=== PATIENT | male | born 1955 | race Caucasian/White ===

== ENCOUNTER 2017-10-07 13:25 | Inpatient (IN) | payer SELFPAY ==
[2017-10-07] MEDS ORDERED: Diltiazem 125 MG in Sodium Chloride 0.9% 100 ML IVPB SCH (14:30)
[2017-10-07 14:49] LABS: CKMB 1.8 ng/mL (0-6.6); Troponin I 0.162 ng/mL (< 0.028)
[2017-10-07] MEDS ORDERED: Ondansetron HCl/PF 4 MG/2 ML Vial IVP PRN (17:18)
[2017-10-07] MEDS ORDERED: Ondansetron ODT 4 MG TAB SL PRN (17:18)
[2017-10-07] MEDS ORDERED: Sodium Chloride 0.9% 1,000 ML IV SCH (17:18)
[2017-10-07] MEDS ORDERED: Acetaminophen 325 MG TAB PO PRN (17:37)
[2017-10-07] MEDS ORDERED: Nitroglycerin 0.4 MG TAB (25 Tab Bottle) PO PRN (17:37)
[2017-10-07] MEDS ORDERED: Mag-Al 1200 mg/1200 mg/30 ML UDCUP PO PRN (17:37)
[2017-10-07] MEDS ORDERED: Ondansetron ODT 4 MG TAB PO PRN (17:37)
[2017-10-07] MEDS ORDERED: Digoxin 0.5 MG/2 ML AMP ONE (18:06)
[2017-10-07 18:27] LABS: Troponin I 0.147 ng/mL (< 0.028)
[2017-10-07] MEDS ORDERED: Digoxin 0.5 MG/2 ML AMP SLOW IVP SCH (18:30)
[2017-10-07] MEDS ORDERED: Enoxaparin Sodium 100 MG/ML SYRINGE SC SCH (18:30)
[2017-10-07 18:46] VITALS: BMI 34.2
[2017-10-07] MEDS: Carvedilol 6.25 MG TAB PO SCH (19:08)
[2017-10-07] MEDS: Docusate 100 MG CAP PO SCH (20:22)
[2017-10-07] MEDS: Famotidine 20 MG TAB PO SCH (20:22)
[2017-10-07] MEDS: Acetaminophen 325 MG TAB PO PRN (20:22)
[2017-10-07] MEDS: Nitroglycerin 2% Ointment 1 INCH/1 GM Packet TOP SCH (20:22)
[2017-10-07] MEDS: Zolpidem Tartrate 5 MG TAB PO PRN (20:28)
--- NOTE | 2017-10-07 20:51 | HP ---
PRIMARY CARE PHYSICIAN: The patient does not have a primary care physician. CHIEF COMPLAINT: Shortness of breath and fatigue. HISTORY OF PRESENT ILLNESS: Mr. Soriano is a pleasant 62-year-old gentleman that has a history of hype rtension. He has not been on any medications recently as he moved from [place] about a year ago. The patient says that in the last week or so, which started on , he began feeling sluggish an d weak and "dragging". He says that when he bent over, he fell out of breath. Then, Friday, he just wanted to sleep all day; Friday, he says he was in bed all day and was short of breath; by Friday, he was feeling really short of breath; Friday, he says he just took a few steps and could barely diandra athe and had no energy. He denies having any chest pain, but when he would go try to sleep at night, he could barely lay down because he was short of breath and then would have to wake up and sit at th e side of the bed. For this reason, he went to the emergency room at the [facility] and was found to be in atrial fibrillation with rapid ventricular response. He was going to be transferred to our fa cility, but he had to go home and cone picker some clothes and then actually presented himself to the ER here. Since then, he has been put on a Cardizem drip with variable control of his heart rate, and he is being admitted for further treatment. PAST MEDICAL HISTORY: Significant for hypertension and asthma. PAST SURGICAL HISTORY: He had the index finger on his right hand amputated due to a carpentry accide nt. He also had surgery to repair his right arm. SOCIAL HISTORY: He is . He has no children. He is a nonsmoker, nondrinker. His mother is his surrogate decision maker and he is a FULL CODE. MEDICATIONS: He had been on amlodipine, but he has not been on that for some time. He says it did n ot work and so he borrowed a few of his friend's carvedilol 12.5 mg and he says this worked better. FAMILY HISTORY: Significant for heart disease in his mother as well as diabetes and hypothyroidism, breast cancer in his mother as well as gallbladder disease. REVIEW OF SYSTEMS: Constitutional: There have been no fevers or chills. No night sweats. No weigh t loss. HEENT: No headaches. No dizziness. No visual changes. No sore throat, rhinorrhea, or nec k pain. No adenopathy. Pulmonary: No hemoptysis. No cough. No wheezing. Cardiovascular: As the history of present illness. Gastrointestinal: No abdominal pain, no nausea, no vomiting, no change in bowels. Genitourinary: No urinary frequency or hematuria, no hesitancy. Neurologic: No focal weakness or numbness, no seizures. Psychiatric: No symptoms of anxiety or depression. PHYSICAL EXAMINATION: VITAL SIGNS: The blood pressure was 134/95, heart rate is 130s to 140s, blood pressure was 147/119, temperature is 98.3. HEENT: Pupils are equal, round, and reactive. Extraocular muscles are intact. Sclerae are anicteri c. Throat: No erythema, no exudates. NECK: No adenopathy, no bruits. LUNGS: Clear to auscultation. There is no wheezing, no rales. CARDIOVASCULAR: His heart rate was tachycardic. There were no murmurs, clicks or rubs. ABDOMEN: Obese, soft, nontender, nondistended. Positive for bowel sounds. No rebound, no guarding and no organomegaly. EXTREMITIES: There is no clubbing, cyanosis, no edema. NEUROLOGIC: The exam is grossly nonfocal. Muscle strength is 5/5 in both his upper and lower extrem ities. LABORATORY: EKG was atrial fibrillation, the heart rate was approximately 140s. Lab results were ta yaa from the records from the [facility] emergency room, the sodium was 145, potassium 4.5, chloride is 104, CO2 is 25, BUN of 13, creatinine 1.1, glucose is 149. White blood cell count 8.7, hemoglobin 14 .8, hematocrit is 42.8, platelet count is 148,000. ASSESSMENT AND PLAN: 1. This is a pleasant 62-year-old gentleman that presents with atrial fibrillation with rapid ventri cular response. He has no prior history of atrial fibrillation. He will be admitted to telemetry. He has already been started on a Cardizem drip which will be continued. As previously mentioned, the heart rate has been variable, even on the Cardizem drip and he may require digoxin or even amiodaron e. Cardiology will be consulted. We will order an echocardiogram and we will start him on Lovenox. We did briefly discuss the possibility of needing to be on long-term anticoagulation and he understo od this. We will also check a thyroid function test as well. 2. For hypertension, this has been not controlled as he has not been on any medications. He seems t o prefer carvedilol, which would help with blood pressure as well as controlling his heart rate. We can start this initially and then await Cardiology recommendations as well. We will continue to tren d cardiac enzymes as well as continue the nitrates and low dose aspirin. We will get a lipid panel. 3. History of asthma. We will place him on Xopenex nebs as needed. Further recommendations will be based on his progress.
[2017-10-07 20:59] LABS: Troponin I 0.156 ng/mL (< 0.028)
[2017-10-08] MEDS: Acetaminophen 325 MG TAB PO PRN ×4 (03:12→20:35)
[2017-10-08] MEDS: Diltiazem 125 MG in Sodium Chloride 0.9% 100 ML IVPB SCH ×2 (03:39→17:03)
[2017-10-08 04:59] LABS: #Basophils 0.1 thou/uL (0.0-0.2); #Eosinphils 0.3 thou/uL (0.0-0.7); #Lymphocytes 2.1 thou/uL (1.20-3.40); #Monocytes 0.9 thou/uL (0.11-0.59); #Neutrophils 6.6 thou/uL (1.40-6.50); %Basophils 0.7 % (0.0-1.0); %Eosinophils 2.6 % (0.0-10.0); %Lymphocytes 21.5 % (21.0-51.0); %Monocytes 8.9 % (0.0-10.0); %Neutrophils 66.4 % (42.0-75.0); Hemoglobin 14.1 g/dL (14.0-18.0); Mean Corpuscular HGB CONC 35.2 g/dL (32.0-36.0); Mean Corpuscular Hemoglobin 32.2 pg (27.0-31.0); Mean Corpuscular Volume 91.6 fl (80.0-94.0); Mean Platelet Volume 7.7 fL (7.4-10.4); Platelet Count 198 thou/uL (130-400); RBC Distribution Width 12.3 % (11.5-14.5); Red Blood Cell (RBC) Count 4.37 mill/uL (4.70-6.10); White Blood Cell (WBC) Count 9.9 thou/uL (4.8-10.8)
[2017-10-08 05:16] LABS: Anion Gap 11 mmol/L (10-20); BUN (Urea Nitrogen) 15 mg/dL (8.4-25.7); Calc. Creatinine Clearance 108 mL/min (70-130); Calcium 8.7 mg/dL (7.8-10.44); Carbon Dioxide 25 mmol/L (22-29); Cardiac Risk 4.2 (Less than 4.5); Chloride 107 mmol/L (98-107); Cholesterol 117 mg/dl (< 200 Desired); Estimated GFR-MDRD 72; Glucose 114 mg/dL (70-105); HDL Cholesterol 28 mg/dL (>60 Neg Risk); LDL Cholesterol, Calculated 71 mg/dL; Potassium 3.9 mmol/L (3.5-5.1); Sodium 139 mmol/L (136-145); Triglycerides 89 mg/dL (Less than 150)
[2017-10-08 05:31] LABS: Free T4 (Free Thyroxine) 1.24 ng/dL (0.70-1.48); Thyroid Stimulating Hormone 1.29 uIU/mL (0.35-4.94)
[2017-10-08] MEDS: Nitroglycerin 2% Ointment 1 INCH/1 GM Packet TOP SCH ×3 (05:55→20:44)
[2017-10-08] MEDS ORDERED: Chloraseptic Spray 180 ml Bottle PO PRN (08:09)
[2017-10-08] MEDS ORDERED: Loperamide HCl 2 MG CAP PO PRN (08:09)
[2017-10-08] MEDS ORDERED: Artificial Tears 18 DROP/0.9 ML EA EYE PRN (08:09)
[2017-10-08] MEDS ORDERED: Diabetic Tussin 200 MG/10 ML UDCUP PO PRN (08:09)
[2017-10-08] MEDS ORDERED: Labetalol HCl 100 MG/20 ML VIAL SLOW IVP PRN (08:09)
[2017-10-08] MEDS ORDERED: Eucerin (Mineral Oil/Petrolatum,White) 30 gm Jar TOP PRN (08:09)
[2017-10-08] MEDS ORDERED: Loratadine 10 MG TAB PO PRN (08:09)
[2017-10-08] MEDS ORDERED: Milk Of Magnesia 30 ML UDCUP PO PRN (08:09)
[2017-10-08] MEDS ORDERED: Sodium Chloride 0.65% Nasal 44 ML BOT EA NARE PRN (08:09)
[2017-10-08] MEDS: Docusate 100 MG CAP PO SCH ×2 (08:10→20:34)
[2017-10-08] MEDS: Famotidine 20 MG TAB PO SCH ×2 (08:10→20:34)
[2017-10-08] MEDS: Carvedilol 6.25 MG TAB PO SCH (08:10)
[2017-10-08] MEDS: Enoxaparin Sodium 100 MG/ML SYRINGE SC SCH ×2 (08:11→20:36)
[2017-10-08 08:38] LABS: ALT (SGPT) 21 U/L (8-55); AST (SGOT) 17 U/L (5-34); Albumin 3.5 g/dL (3.5-5.0); Alkaline Phosphatase 62 U/L (40-150); Bilirubin, Direct 0.7 mg/dL (0.1-0.3); Bilirubin, Total 1.7 mg/dL (0.2-1.2)
--- NOTE | 2017-10-08 12:01 | PDOC.PN ---
- Subjective Encounter Start Date: 10/08/17 Encounter Start Time: 07:15 -: old records requested/rev Patient seen and examined for atrial fibrillation. No new complaints. No overnight events - Objective Resuscitation Status: Resuscitation Status FULL:Full Resuscitation MAR Reviewed: Yes Vital Signs & Weight: Vital Signs (12 hours) Temp Pulse Resp BP Pulse Ox 10/08/17 08:00 98.2 F 90 17 94 L 10/08/17 07:37 98.2 F 90 17 119/81 94 L Weight Weight 225 lb 3.2 oz I&O: 10/07/17 10/08/17 10/09/17 06:59 06:59 06:59 Intake Total 275 Output Total 725 Balance -450 Result Diagrams: 10/08/17 04:47 10/08/17 04:47 EKG Reviewed by me: Yes (afib) Phys Exam - Physical Examination Constitutional: NAD HEENT: PERRLA, moist MMs, sclera anicteric Neck: no JVD, supple Respiratory: no wheezing, no rales, no rhonchi Cardiovascular: no significant murmur, irregular Gastrointestinal: soft, non-tender, no distention, positive bowel sounds Musculoskeletal: no edema, pulses present Neurological: non-focal, normal sensation, moves all 4 limbs Psychiatric: normal affect, A&O x 3 Skin: no rash, normal turgor Dx/Plan (1) Atrial fibrillation with RVR Code(s): I48.91 - UNSPECIFIED ATRIAL FIBRILLATION Status: Acute (2) Demand ischemia of myocardium Code(s): I24.8 - OTHER FORMS OF ACUTE ISCHEMIC HEART DISEASE Status: Acute (3) Asthma Code(s): J45.909 - UNSPECIFIED ASTHMA, UNCOMPLICATED Status: Chronic (4) Hypertension Code(s): I10 - ESSENTIAL (PRIMARY) HYPERTENSION Status: Chronic (5) Obesity (BMI 30-39.9) Code(s): E66.9 - OBESITY, UNSPECIFIED Status: Chronic - Plan cont current plan of care, plan discussed w/ family * continue cardizem drip, still in afib but rate controlled * continue lovenox * cardiology consulted * he has chads2 score 1 so far, echo pending, * discussed with pt about option of senior care chronic anticoagulation, will defer to cardiology * if in afib, may need cardioversion * medication reviewed as below * symptomatic treatment * discussed with . Review of Systems - Review of Systems Eyes: negative: Pain, Vision Change, Conjunctivae Inflammation, Eyelid Inflammation, Redness, Other ENT: negative: Ear Pain, Ear Discharge, Nose Pain, Nose Discharge, Nose Congestion, Mouth Pain, Mouth Swelling, Throat Pain, Throat Swelling, Other Respiratory: negative: Cough, Dry, Shortness of Breath, Hemoptysis, SOB with Excertion, Pleuritic Pain, Sputum, Wheezing Cardiovascular: negative: chest pain, palpitations, orthopnea, paroxysmal nocturnal dyspnea, edema, light headedness, other Gastrointestinal: negative: Nausea, Vomiting, Abdominal Pain, Diarrhea, Constipation, Melena, Hematochezia, Other Genitourinary: negative: Dysuria, Frequency, Incontinence, Hematuria, Retention , Other Musculoskeletal: negative: Neck Pain, Shoulder Pain, Arm Pain, Back Pain, Hand Pain, Leg Pain, Foot Pain, Other Skin: negative: Rash, Lesions, Mikhail, Bruising, Other - Medications/Allergies Allergies/Adverse Reactions: Allergies Allergy/AdvReac Type Severity Reaction Status Date / Time No Known Allergies Allergy Verified 10/07/17 18:45 Medications: Current Medications Acetaminophen (Tylenol) 650 mg PO Q4H PRN PRN Reason: Headache/Fever or Pain Last Admin: 10/08/17 08:10 Dose: 650 mg Al Hydroxide/Mg Hydroxide (Maalox) 30 ml PO Q6H PRN PRN Reason: Heartburn or Indigestion Artificial Tears (Tears Naturale) 0 drop EA EYE PRN PRN PRN Reason: Dry Eyes Carvedilol (Coreg) 6.25 mg PO BID [facility] Last Admin: 10/08/17 08:10 Dose: 6.25 mg Docusate Sodium (Colace) 100 mg PO BID [facility] Last Admin: 10/08/17 08:10 Dose: Not Given Enoxaparin Sodium (Lovenox) 100 mg SC 0900,2100 [facility] Last Admin: 10/08/17 08:11 Dose: 100 mg Famotidine (Pepcid) 20 mg PO BID [facility] Last Admin: 10/08/17 08:10 Dose: Not Given Guaifenesin (Robitussin Sf) 200 mg PO Q4H PRN PRN Reason: Cough Diltiazem HCl 125 mg/ Sodium (Chloride) 125 mls @ 10 mls/hr IVPB INF STUART; 10 MG /HR PRN Reason: Protocol Last Admin: 10/08/17 03:39 Dose: 125 mls Labetalol HCl (Normodyne) 10 mg SLOW IVP Q4H PRN PRN Reason: Systolic BP > 180 Levalbuterol HCl (Xopenex) 0.63 mg NEB Q8H PRN PRN Reason: SOB &/or Wheezing Loperamide HCl (Imodium) 2 mg PO PRN PRN PRN Reason: Diarrhea/Loose Stools Loratadine (Claritin) 10 mg PO DAILYPRN PRN PRN Reason: Sinus Symptoms Magnesium Hydroxide (Milk Of Magnesium) 30 ml PO DAILYPRN PRN PRN Reason: Constipation Mineral Oil/White Petrolatum (Eucerin Cream) 0 gm TOP BIDPRN PRN PRN Reason: Dry Skin Nitroglycerin (Nitro-Bid 2% Ointment) 0.5 inch TOP Q8HR [facility] Last Admin: 10/08/17 05:55 Dose: 0.5 inch Nitroglycerin (Nitrostat) 0.4 mg PO Q5MIN PRN PRN Reason: Chest Pain Ondansetron HCl (Zofran Odt) 4 mg PO Q6H PRN PRN Reason: Nausea/Vomiting Phenol (Chloraseptic [place] 180 Ml Bot) 0 ml PO PRN PRN PRN Reason: Sore Throat Sodium Chloride ([place] Nasal [place] 0.65%) 0 ml EA NARE QIDPRN PRN PRN Reason: Nasal Congestion Sodium Chloride (Flush - Normal Saline) 10 ml IVF Q12HR [facility] Last Admin: 10/08/17 10:08 Dose: Not Given Sodium Chloride (Flush - Normal Saline) 10 ml IVF PRN PRN PRN Reason: Saline Flush Zolpidem Tartrate (Ambien) 5 mg PO HSPRN PRN PRN Reason: .INSOMNIA Last Admin: 10/07/17 20:28 Dose: 5 mg
[2017-10-08 16:49] LABS: INR-International Normal Ratio 1.2; Prothrombin Time 14.9 SEC (12.0-14.7)
[2017-10-08] MEDS: Warfarin Sodium 5 MG TAB PO SCH ×2 (18:06→18:13)
[2017-10-08 18:48] LABS: Bilirubin Negative (Negative); Blood, Urine Negative (Negative); Clarity CLEAR (Clear); Glucose, Urine (Dipstick) Negative (Negative); Leukocyte Negative (Negative); Nitrite Negative (Negative); Protein, Urine (Dipstick) 30 mg/dL (Neg-Trace); Specific Gravity, Urine 1.031 (1.002-1.036); pH, Urine 7.5 (5.0-9.0)
[2017-10-08 18:55] LABS: Bacteria/HPF None Seen HPF (None Seen); Hyaline Casts/LPF 0-3 HYALINE CAST LPF (0-3 Hyaline); Pathc Cast-AUWi Flag 0.14 (0-2.49); RBC/HPF 0-3 HPF (0-3); Squamous Epithelial None Seen HPF (0-3); WBC/HPF None Seen HPF (0-3)
[2017-10-08 18:57] LABS: Amphetamine Not Detected (NotDetected); Barbiturates Screen Not Detected (NotDetected); Benzodiazepine Screen Not Detected (NotDetected); Cocaine Metabolite Screen Not Detected (NotDetected); Medtox Control Line Valid? VALID (VALID); Medtox Reader # READER 1; Methadone Not Detected (NotDetected); Methamphetamine Not Detected (NotDetected); Opiate Screen Not Detected (NotDetected); Oxycodone Screen Not Detected (NotDetected); Phencyclidine (PCP) Not Detected (NotDetected); THC/Cannabinoid Screen Not Detected (NotDetected); Tricyclic Screen Not Detected (NotDetected)
[2017-10-08] MEDS: Metoprolol Tartrate 50 MG TAB PO SCH (20:34)
[2017-10-08] MEDS: Zolpidem Tartrate 5 MG TAB PO PRN (20:35)
--- NOTE | 2017-10-09 00:16 | CON ---
DATE OF CONSULTATION: 10/08/2017 HISTORY: Frank Soriano is a 62-year-old white male with longstanding history of hypertension. He states that he took amlodipine in the past; however, this did not seem to control his blood pressure, so he stopped taking it. He also would periodically borrow one of his friend's carvedilol. On either 10/01/2017 or 02/2018, he took carvedilol 12.5 mg twice on that day. Then, on 10/03/2017, he felt very poorly when he woke up in the morning, was very weak and slept most of the day. He also noted that if he would walk or tried to do some form of exertion, he would become very short of breath. He also did not sleep for 2-3 nights because every time he would get into bed and lie supine, he would have increased shortness of breath and have to get up out of bed. He eventually went yesterday on 10/07/2017 to the [place] emergency room. He was found to be in atrial fibrillation with fast ventricular response. He was to be transferred here, but decided he would not pay for the ambulance, went home to get some clothes, and then came to the emergency room here. He was found to be in atrial fibrillation, heart rate of 140 per minute. Throughout all of this, he denied any chest discomfort. He had had dyspnea as noted above. He also did not specifically note any palpitations. With slowing of his rate, he states that he feels back to normal at the present time. PAST MEDICAL HISTORY: Hypertension, untreated at the present time and asthma. OPERATIONS: Amputation of the distal portion of his right index finger after carpentry accident. MEDICATIONS: None at the present time except last week he did take carvedilol 12.5 mg twice in 1 day and then 1-2 days later apparently developed the atrial fibrillation. ALLERGIES: None. SOCIAL HISTORY: He does not smoke. He states that he drinks fairly heavily until September of last year when he quit. FAMILY HISTORY: Mother has heart disease. REVIEW OF SYSTEMS: Twelve-point review of systems is otherwise unremarkable. PHYSICAL EXAMINATION: VITAL SIGNS: Blood pressure 119/81, pulse of 90 and irregularly irregular. HEENT: PERRL. NECK: Supple. CHEST: Clear. CARDIAC: S1 and S2 are normal without any S3, S4, or murmurs. Carotid upstrokes are normal without bruits. ABDOMEN: Normal bowel sounds without tenderness, organomegaly. EXTREMITIES: Revealed no clubbing, cyanosis, or edema. NEUROLOGIC: Grossly intact. SKIN: Warm and dry. LABORATORY DATA: EKG revealed atrial fibrillation with fast ventricular response with a rate of 141 per minute. Hemoglobin 14.1, hematocrit 40.0, white count 9900, platelets 198,000. Sodium 139, potassium 3.9, chloride 109, carbon dioxide 25, BUN 15, creatinine 1.05. Troponin I was highest on admission - 0.162. CK-MB is normal. Cholesterol 117, triglycerides 89, HDL 28 , LDL 71. Free T4 and TSH are normal. BNP is 306.8. IMPRESSION: 1. New-onset atrial fibrillation, probably on 10/03/2017 by his history. This certainly may have been brought on by taking a beta paolo and then abruptly withdrawing it when he took the Coreg, 2 doses, and then none after that. His rate is under better control at the present time. He is on therapeutic Lovenox 100 mg b.i.d. 2. Hypertension. 3. Noncompliance. 4. History of ethanol abuse. 5. History of asthma. PLAN: Echocardiogram has been ordered, but has not been performed as yet. I will start him on Coumadin (with the patient not having health insurance, I do not think that he could afford some of the newer agents) since this will probably be the rate limiting except for when he goes home since he will require anticoagulation. Also, I will switch him to metoprolol from the carvedilol, which will have better rate control. Cardizem drip will be tapered as possible. Further decisions will be made on medications once his echo has been performed. RABIA
[2017-10-09] MEDS: Nitroglycerin 2% Ointment 1 INCH/1 GM Packet TOP SCH (03:05)
[2017-10-09] MEDS: Diltiazem 125 MG in Sodium Chloride 0.9% 100 ML IVPB SCH (03:46)
[2017-10-09 05:53] LABS: Hemoglobin 14.3 g/dL (14.0-18.0); Platelet Count 216 thou/uL (130-400)
[2017-10-09 05:56] LABS: INR-International Normal Ratio 1.1; Prothrombin Time 14.7 SEC (12.0-14.7)
[2017-10-09] MEDS: Levalbuterol HCl 0.63 MG/3 ML NEB NEB PRN ×2 (07:13→16:38)
[2017-10-09] MEDS ORDERED: Diltiazem 125 MG in Sodium Chloride 0.9% 100 ML IVPB SCH (09:30)
[2017-10-09] MEDS ORDERED: Metoprolol Tartrate 25 MG TAB PO SCH (09:30)
[2017-10-09] MEDS: Docusate 100 MG CAP PO SCH ×2 (09:38→20:22)
[2017-10-09] MEDS: Famotidine 20 MG TAB PO SCH ×2 (09:39→20:21)
[2017-10-09] MEDS: Enoxaparin Sodium 100 MG/ML SYRINGE SC SCH (09:39)
[2017-10-09] MEDS: Metoprolol Tartrate 50 MG TAB PO SCH (09:53)
--- NOTE | 2017-10-09 10:32 | PDOC.PN ---
- Subjective Encounter Start Date: 10/09/17 Encounter Start Time: 07:10 Patient seen and examined for atrail fibrillation. No new complaints. No overnight events - Objective Resuscitation Status: Resuscitation Status FULL:Full Resuscitation MAR Reviewed: Yes Vital Signs & Weight: Vital Signs (12 hours) Temp Pulse Resp BP Pulse Ox 10/09/17 08:15 97.8 F 77 17 146/102 H 95 10/09/17 07:13 72 16 98 Weight Weight 225 lb 3.2 oz I&O: 10/08/17 10/09/17 10/10/17 06:59 06:59 06:59 Intake Total 275 1110 Output Total 725 975 Balance -450 135 Result Diagrams: 10/09/17 05:41 10/09/17 05:41 EKG Reviewed by me: Yes (afib) Phys Exam - Physical Examination Constitutional: NAD HEENT: PERRLA, moist MMs, sclera anicteric Neck: no JVD, supple Respiratory: no wheezing, no rales, no rhonchi Cardiovascular: no significant murmur, irregular Gastrointestinal: soft, non-tender, no distention, positive bowel sounds Musculoskeletal: no edema, pulses present Neurological: non-focal, normal sensation, moves all 4 limbs Lymphatic: no nodes Psychiatric: normal affect, A&O x 3 Skin: no rash, normal turgor Dx/Plan (1) Atrial fibrillation with RVR Code(s): I48.91 - UNSPECIFIED ATRIAL FIBRILLATION Status: Acute (2) Demand ischemia of myocardium Code(s): I24.8 - OTHER FORMS OF ACUTE ISCHEMIC HEART DISEASE Status: Acute (3) Asthma Code(s): J45.909 - UNSPECIFIED ASTHMA, UNCOMPLICATED Status: Chronic (4) Hypertension Code(s): I10 - ESSENTIAL (PRIMARY) HYPERTENSION Status: Chronic (5) Obesity (BMI 30-39.9) Code(s): E66.9 - OBESITY, UNSPECIFIED Status: Chronic - Plan cont current plan of care, plan discussed w/ family * pt prefers elliquis for anticoagulation, but currently he does not have insurance but it will kick in in 2 months, will ask if he can get samples and coupon * echo pending * still on cardizem drip * cardiology following * will monitor today * discussed with . Review of Systems - Review of Systems Eyes: negative: Pain, Vision Change, Conjunctivae Inflammation, Eyelid Inflammation, Redness, Other ENT: negative: Ear Pain, Ear Discharge, Nose Pain, Nose Discharge, Nose Congestion, Mouth Pain, Mouth Swelling, Throat Pain, Throat Swelling, Other Respiratory: negative: Cough, Dry, Shortness of Breath, Hemoptysis, SOB with Excertion, Pleuritic Pain, Sputum, Wheezing Cardiovascular: negative: chest pain, palpitations, orthopnea, paroxysmal nocturnal dyspnea, edema, light headedness, other Gastrointestinal: negative: Nausea, Vomiting, Abdominal Pain, Diarrhea, Constipation, Melena, Hematochezia, Other Genitourinary: negative: Dysuria, Frequency, Incontinence, Hematuria, Retention , Other Musculoskeletal: negative: Neck Pain, Shoulder Pain, Arm Pain, Back Pain, Hand Pain, Leg Pain, Foot Pain, Other Skin: negative: Rash, Lesions, Mikhail, Bruising, Other - Medications/Allergies Allergies/Adverse Reactions: Allergies Allergy/AdvReac Type Severity Reaction Status Date / Time No Known Allergies Allergy Verified 10/07/17 18:45 Medications: Current Medications Acetaminophen (Tylenol) 650 mg PO Q4H PRN PRN Reason: Headache/Fever or Pain Last Admin: 10/08/17 20:35 Dose: 650 mg Al Hydroxide/Mg Hydroxide (Maalox) 30 ml PO Q6H PRN PRN Reason: Heartburn or Indigestion Artificial Tears (Tears Naturale) 0 drop EA EYE PRN PRN PRN Reason: Dry Eyes Docusate Sodium (Colace) 100 mg PO BID [facility] Last Admin: 10/09/17 09:38 Dose: 100 mg Enoxaparin Sodium (Lovenox) 100 mg SC 0900,2100 [facility] Last Admin: 10/09/17 09:39 Dose: 100 mg Famotidine (Pepcid) 20 mg PO BID [facility] Last Admin: 10/09/17 09:39 Dose: Not Given Guaifenesin (Robitussin Sf) 200 mg PO Q4H PRN PRN Reason: Cough Diltiazem HCl 125 mg/ Sodium (Chloride) 125 mls @ 10 mls/hr IVPB INF [facility]; 10 MG /HR PRN Reason: Protocol Stop: 10/09/17 15:30 Labetalol HCl (Normodyne) 10 mg SLOW IVP Q4H PRN PRN Reason: Systolic BP > 180 Levalbuterol HCl (Xopenex) 0.63 mg NEB Q8H PRN PRN Reason: SOB &/or Wheezing Last Admin: 10/09/17 07:13 Dose: 0.63 mg Loperamide HCl (Imodium) 2 mg PO PRN PRN PRN Reason: Diarrhea/Loose Stools Loratadine (Claritin) 10 mg PO DAILYPRN PRN PRN Reason: Sinus Symptoms Magnesium Hydroxide (Milk Of Magnesium) 30 ml PO DAILYPRN PRN PRN Reason: Constipation Metoprolol Tartrate (Lopressor) 25 mg PO NOW [facility] Stop: 10/09/17 11:30 Last Admin: 10/09/17 09:40 Dose: 25 mg Metoprolol Tartrate (Lopressor) 75 mg PO BID [facility] Mineral Oil/White Petrolatum (Eucerin Cream) 0 gm TOP BIDPRN PRN PRN Reason: Dry Skin Nitroglycerin (Nitrostat) 0.4 mg PO Q5MIN PRN PRN Reason: Chest Pain Ondansetron HCl (Zofran Odt) 4 mg PO Q6H PRN PRN Reason: Nausea/Vomiting Phenol (Chloraseptic [place] 180 Ml Bot) 0 ml PO PRN PRN PRN Reason: Sore Throat Sodium Chloride ([place] Nasal [place] 0.65%) 0 ml EA NARE QIDPRN PRN PRN Reason: Nasal Congestion Sodium Chloride (Flush - Normal Saline) 10 ml IVF Q12HR [facility] Last Admin: 10/09/17 09:40 Dose: Not Given Sodium Chloride (Flush - Normal Saline) 10 ml IVF PRN PRN PRN Reason: Saline Flush Warfarin Sodium (Coumadin) 5 mg PO 1700 [facility] Last Admin: 10/08/17 18:13 Dose: Not Given Zolpidem Tartrate (Ambien) 5 mg PO HSPRN PRN PRN Reason: .INSOMNIA Last Admin: 10/08/17 20:35 Dose: 5 mg
[2017-10-09] MEDS: Zolpidem Tartrate 5 MG TAB PO PRN (20:23)
[2017-10-09] MEDS: Apixaban 5 MG TAB PO SCH (20:23)
[2017-10-09] MEDS ORDERED: Metoprolol Tartrate 50 MG TAB PO SCH (21:00)
[2017-10-09] MEDS ORDERED: Lisinopril 5 MG TAB PO SCH (21:00)
[2017-10-10] MEDS ORDERED: Diltiazem HCl 125 MG, Admixture Fee 1 EACH in Sodium Chloride 0.9% 100 ML IVPB SCH ×2 (01:15→07:59)
[2017-10-10 06:03] LABS: INR-International Normal Ratio 1.2; Prothrombin Time 15.2 SEC (12.0-14.7)
[2017-10-10] MEDS ORDERED: Digoxin 0.5 MG/2 ML AMP SLOW IVP SCH (07:00)
[2017-10-10 07:08] LABS: Hemoglobin 15.3 g/dL (14.0-18.0); Platelet Count 212 thou/uL (130-400)
[2017-10-10] MEDS ORDERED: Amiodarone HCl 150 MG in Dextrose 5% in Water 100 ML IVPB SCH (08:00)
[2017-10-10] MEDS ORDERED: Amiodarone In Dextrose 200 ML IVPB SCH (08:00)
[2017-10-10] MEDS ORDERED: Carvedilol 6.25 MG TAB PO SCH (08:00)
[2017-10-10] MEDS: Carvedilol 6.25 MG TAB PO SCH ×3 (08:57→21:21)
[2017-10-10] MEDS: Furosemide 20 MG TAB PO SCH (08:57)
[2017-10-10] MEDS: Spironolactone 25 MG TAB PO SCH (08:57)
[2017-10-10] MEDS: Apixaban 5 MG TAB PO SCH ×2 (08:57→21:21)
[2017-10-10] MEDS: Docusate 100 MG CAP PO SCH ×2 (08:57→21:21)
[2017-10-10] MEDS: Lisinopril 5 MG TAB PO SCH ×2 (08:58→21:20)
[2017-10-10] MEDS: Digoxin 0.125 MG TAB PO SCH (08:58)
[2017-10-10] MEDS: Famotidine 20 MG TAB PO SCH ×2 (08:58→21:22)
[2017-10-10 10:18] LABS: ALT (SGPT) 39 U/L (8-55); AST (SGOT) 37 U/L (5-34); Albumin 3.9 g/dL (3.5-5.0); Alkaline Phosphatase 73 U/L (40-150); Bilirubin, Direct 0.7 mg/dL (0.1-0.3); Bilirubin, Total 1.8 mg/dL (0.2-1.2); Magnesium 2.2 mg/dL (1.6-2.6); Potassium 3.9 mmol/L (3.5-5.1); Protein, Total 6.1 g/dL (6.0-8.3)
[2017-10-10] MEDS: Amiodarone HCl 450 MG, Admixture Fee 1 EACH in Dextrose 5% in Water 250 ML IVPB SCH ×2 (10:27→21:22)
--- NOTE | 2017-10-10 10:41 | PDOC.PN ---
- Subjective Encounter Start Date: 10/10/17 Encounter Start Time: 07:15 Patient seen and examined. No new complaints. No overnight events his heart rate still high , on amiodaron drip - Objective Resuscitation Status: Resuscitation Status FULL:Full Resuscitation MAR Reviewed: Yes Vital Signs & Weight: Vital Signs (12 hours) Temp Pulse Resp BP Pulse Ox 10/10/17 08:50 121 H 10/10/17 04:00 98.0 F 121 H 14 162/98 H 95 10/10/17 00:15 134 H 20 155/111 H 95 Weight Weight 223 lb 8 oz I&O: 10/09/17 10/10/17 10/11/17 06:59 06:59 06:59 Intake Total 1110 1716 Output Total 975 2200 Balance 135 -484 Result Diagrams: 10/10/17 05:45 10/10/17 09:49 Radiology Reviewed by me: Yes (echo report noted) EKG Reviewed by me: Yes (afib) Phys Exam - Physical Examination Constitutional: NAD HEENT: PERRLA, moist MMs, sclera anicteric Neck: no nodes, no JVD, supple, full ROM Respiratory: no wheezing, no rales, no rhonchi Cardiovascular: no significant murmur, irregular Gastrointestinal: soft, non-tender, no distention, positive bowel sounds Musculoskeletal: no edema, pulses present Neurological: non-focal, normal sensation, moves all 4 limbs Lymphatic: no nodes Psychiatric: normal affect, A&O x 3 Skin: no rash, normal turgor Dx/Plan (1) Atrial fibrillation with RVR Code(s): I48.91 - UNSPECIFIED ATRIAL FIBRILLATION Status: Acute (2) Demand ischemia of myocardium Code(s): I24.8 - OTHER FORMS OF ACUTE ISCHEMIC HEART DISEASE Status: Acute (3) Asthma Code(s): J45.909 - UNSPECIFIED ASTHMA, UNCOMPLICATED Status: Chronic (4) Hypertension Code(s): I10 - ESSENTIAL (PRIMARY) HYPERTENSION Status: Chronic (5) Obesity (BMI 30-39.9) Code(s): E66.9 - OBESITY, UNSPECIFIED Status: Chronic (6) Cardiomyopathy Code(s): I42.9 - CARDIOMYOPATHY, UNSPECIFIED Status: Acute (7) Severe mitral regurgitation Code(s): I34.0 - NONRHEUMATIC MITRAL (VALVE) INSUFFICIENCY Status: Acute (8) Systolic dysfunction, left ventricle Code(s): I51.9 - HEART DISEASE, UNSPECIFIED Status: Acute - Plan cont current plan of care * continue amiodaron drip for afib * will add digoxin po daily and give one time dose IV * add aldactone * increase lisinopril 5 mg po bid * continue po lasix * adjust cardiac medication * will need ischemic evaluation, with cardiac cath * he may need ELENA or cardioversion if rate not controlled * continue elliquis * medication reviewed as below * symptomatic treatment. Review of Systems - Review of Systems Constitutional: negative: fever, chills, sweats, weakness, malaise, other ENT: negative: Ear Pain, Ear Discharge, Nose Pain, Nose Discharge, Nose Congestion, Mouth Pain, Mouth Swelling, Throat Pain, Throat Swelling, Other Respiratory: negative: Cough, Dry, Shortness of Breath, Hemoptysis, SOB with Excertion, Pleuritic Pain, Sputum, Wheezing Cardiovascular: negative: chest pain, palpitations, orthopnea, paroxysmal nocturnal dyspnea, edema, light headedness, other Gastrointestinal: negative: Nausea, Vomiting, Abdominal Pain, Diarrhea, Constipation, Melena, Hematochezia, Other Genitourinary: negative: Dysuria, Frequency, Incontinence, Hematuria, Retention , Other Musculoskeletal: negative: Neck Pain, Shoulder Pain, Arm Pain, Back Pain, Hand Pain, Leg Pain, Foot Pain, Other Skin: negative: Rash, Lesions, Mikhail, Bruising, Other - Medications/Allergies Allergies/Adverse Reactions: Allergies Allergy/AdvReac Type Severity Reaction Status Date / Time No Known Allergies Allergy Verified 10/07/17 18:45 Medications: Current Medications Acetaminophen (Tylenol) 650 mg PO Q4H PRN PRN Reason: Headache/Fever or Pain Last Admin: 10/08/17 20:35 Dose: 650 mg Al Hydroxide/Mg Hydroxide (Maalox) 30 ml PO Q6H PRN PRN Reason: Heartburn or Indigestion Apixaban (Eliquis) 5 mg PO BID [facility] Last Admin: 10/10/17 08:57 Dose: 5 mg Artificial Tears (Tears Naturale) 0 drop EA EYE PRN PRN PRN Reason: Dry Eyes Carvedilol (Coreg) 12.5 mg PO TID [facility] Last Admin: 10/10/17 08:57 Dose: 12.5 mg Digoxin (Lanoxin) 0.125 mg PO DAILY [facility] Last Admin: 10/10/17 08:58 Dose: Not Given Docusate Sodium (Colace) 100 mg PO BID [facility] Last Admin: 10/10/17 08:57 Dose: 100 mg Famotidine (Pepcid) 20 mg PO BID [facility] Last Admin: 10/10/17 08:58 Dose: Not Given Furosemide (Lasix) 20 mg PO DAILY [facility] Last Admin: 10/10/17 08:57 Dose: 20 mg Guaifenesin (Robitussin Sf) 200 mg PO Q4H PRN PRN Reason: Cough Amiodarone HCl/Dextrose (Nexterone) 200 mls @ 0 mls/hr IVPB INF [facility] PRN Reason: Per Protocol Diltiazem HCl 125 mg/Miscellaneous Medication 1 each/ Sodium Chloride 125 mls @ 10 mls/hr IVPB INF [facility] PRN Reason: Protocol Amiodarone HCl 450 mg/Miscellaneous Medication 1 each/ Dextrose/Water 259 mls @ 0 mls/hr IVPB INF [facility]; As Directed PRN Reason: Protocol Last Admin: 10/10/17 10:27 Dose: 259 mls Labetalol HCl (Normodyne) 10 mg SLOW IVP Q4H PRN PRN Reason: Systolic BP > 180 Levalbuterol HCl (Xopenex) 0.63 mg NEB Q8H PRN PRN Reason: SOB &/or Wheezing Last Admin: 10/09/17 16:38 Dose: 0.63 mg Lisinopril (Zestril) 5 mg PO BID [facility] Last Admin: 10/10/17 08:58 Dose: Not Given Loperamide HCl (Imodium) 2 mg PO PRN PRN PRN Reason: Diarrhea/Loose Stools Loratadine (Claritin) 10 mg PO DAILYPRN PRN PRN Reason: Sinus Symptoms Magnesium Hydroxide (Milk Of Magnesium) 30 ml PO DAILYPRN PRN PRN Reason: Constipation Mineral Oil/White Petrolatum (Eucerin Cream) 0 gm TOP BIDPRN PRN PRN Reason: Dry Skin Nitroglycerin (Nitrostat) 0.4 mg PO Q5MIN PRN PRN Reason: Chest Pain Ondansetron HCl (Zofran Odt) 4 mg PO Q6H PRN PRN Reason: Nausea/Vomiting Phenol (Chloraseptic Jackson 180 Ml Bot) 0 ml PO PRN PRN PRN Reason: Sore Throat Sodium Chloride ([place] Nasal Jackson 0.65%) 0 ml EA NARE QIDPRN PRN PRN Reason: Nasal Congestion Sodium Chloride (Flush - Normal Saline) 10 ml IVF Q12HR [facility] Last Admin: 10/10/17 08:58 Dose: Not Given Sodium Chloride (Flush - Normal Saline) 10 ml IVF PRN PRN PRN Reason: Saline Flush Last Admin: 10/10/17 01:44 Dose: 10 ml Spironolactone (Aldactone) 25 mg PO QAM-WM [facility] Last Admin: 10/10/17 08:57 Dose: 25 mg Zolpidem Tartrate (Ambien) 5 mg PO HSPRN PRN PRN Reason: .INSOMNIA Last Admin: 10/09/17 20:23 Dose: 5 mg
--- NOTE | 2017-10-11 08:19 | PDOC.PN ---
- Subjective Encounter Start Date: 10/11/17 Encounter Start Time: 08:17 Subjective: feels good, multiple questions about meds , etc - Objective Resuscitation Status: Resuscitation Status FULL:Full Resuscitation MAR Reviewed: Yes Vital Signs & Weight: Vital Signs (12 hours) Temp Pulse Resp BP BP Pulse Ox 10/11/17 07:49 98.2 F 107 H 16 150/107 H 98 10/11/17 03:54 98.5 F 113 H 17 126/102 H 95 10/10/17 21:21 98.3 F 120 H 16 96 10/10/17 21:20 120 H 159/112 H Weight Weight 223 lb 1.6 oz I&O: 10/10/17 10/11/17 10/12/17 06:59 06:59 06:59 Intake Total 1716 1640.4 Output Total 2200 2300 Balance -484 -659.6 Result Diagrams: 10/10/17 05:45 10/10/17 09:49 Phys Exam - Physical Examination Neck: no JVD Respiratory: clear to auscultation bilateral Cardiovascular: no significant murmur, irregular tachy Gastrointestinal: soft, positive bowel sounds Musculoskeletal: edema present Dx/Plan (1) Atrial fibrillation with RVR Code(s): I48.91 - UNSPECIFIED ATRIAL FIBRILLATION Status: Acute (2) Cardiomyopathy Code(s): I42.9 - CARDIOMYOPATHY, UNSPECIFIED Status: Acute Qualifiers: Cardiomyopathy type: unspecified Qualified Code(s): I42.9 - Cardiomyopathy , unspecified (3) Demand ischemia of myocardium Code(s): I24.8 - OTHER FORMS OF ACUTE ISCHEMIC HEART DISEASE Status: Acute (4) Severe mitral regurgitation Code(s): I34.0 - NONRHEUMATIC MITRAL (VALVE) INSUFFICIENCY Status: Acute (5) Hypertension Code(s): I10 - ESSENTIAL (PRIMARY) HYPERTENSION Status: Chronic Qualifiers: Hypertension type: unspecified Qualified Code(s): I10 - Essential (primary ) hypertension - Plan cont iv amiodarone -: cont coreg/ shantell for cardiomyopathy -: cont eliquis -: planned ELENA/ CV in 2 days * .
[2017-10-11] MEDS: Carvedilol 6.25 MG TAB PO SCH ×2 (08:57→14:02)
[2017-10-11] MEDS: Furosemide 20 MG TAB PO SCH (08:57)
[2017-10-11] MEDS: Spironolactone 25 MG TAB PO SCH (08:57)
[2017-10-11] MEDS: Lisinopril 5 MG TAB PO SCH ×2 (08:58→20:42)
[2017-10-11] MEDS: Docusate 100 MG CAP PO SCH ×2 (08:58→20:43)
[2017-10-11] MEDS: Apixaban 5 MG TAB PO SCH ×2 (08:58→20:42)
[2017-10-11] MEDS: Digoxin 0.125 MG TAB PO SCH (08:59)
[2017-10-11] MEDS: Famotidine 20 MG TAB PO SCH ×2 (09:00→20:41)
[2017-10-11] MEDS: Amiodarone HCl 450 MG, Admixture Fee 1 EACH in Dextrose 5% in Water 250 ML IVPB SCH (13:55)
--- NOTE | 2017-10-11 14:36 | PDOC.CTH ---
<Marine Moyer - Last Filed: 10/11/17 14:34> Cardiology Progress Note - Subjective The pt seen and examined. No overnight events. No cardiac complaints. The questions about ELENA/Cardioversion and his progress and tx plan were discussed with the pt and mother. He continues complains of no energy and intermittent SOB. - Objective Vital Signs Temp Pulse Resp BP Pulse Ox 10/11/17 12:00 98.0 F 92 17 159/101 H 98 10/11/17 08:59 122 H 10/11/17 07:49 98.2 F 107 H 16 150/107 H 98 10/11/17 03:54 98.5 F 113 H 17 126/102 H 95 Weight 223 lb 1.6 oz 10/10/17 10/11/17 10/12/17 06:59 06:59 06:59 Intake Total 1716 1640.4 Output Total 2200 2300 Balance -484 -659.6 - Physical Examination General/Neuro: alert & oriented x3 Neck: no JVD present Lungs: CTA Heart: other: (irregular) Abdomen: soft Extremities: other: (No edema) - Telemetry Telemetry Rhythm: Afib with HR 90-110s - Labs Result Diagrams: 10/10/17 05:45 10/10/17 09:49 Troponin/CKMB CK-MB (CK-2) 1.8 ng/mL (0-6.6) 10/07/17 14:00 Troponin I 0.156 ng/mL (< 0.028) H 10/07/17 20:21 - Assessment/Plan 1. A fib with RVR - Cont. Afib HR 90-110s with Amiodarone drip, Coreg 12.5mg TID , Dig 0.125mg po daily and Eliquis 5mg BID. Increase Coreg to 25mg BID. Cont. to monitor on tele; Plan for ELENA and Cardioversion on Friday by Dr Hernandez; May change Amiodarone to PO tomorrow. 2. Acute on Chronic Systolic HF - Echo on 10/09/17 showed EF 15-20%, severe MR, mild-mod TR, mild LVH. Stable with BBlocker, SINA, Lasix, and spironolactone. 3. Severe MR - 4. HTN - increase Coreg to 25mg BID for HTN and tachycardia 5. Hx of ETOH abuse - ETOH cessation education given to the pt and mother MAR reviewed * Possible ELENA/Cardioversion next Friday. The procedure and the risk of the procedure was explained to the pt and family. They voiced understanding and agreed to proceed the procedure on Friday. Review of Systems - Review of Systems Constitutional: reports: no symptoms reported EENTM: reports: no symptoms reported Respiratory: reports: no symptoms reported Cardiac (ROS): reports: no symptoms reported ABD/GI: reports: no symptoms reported : reports: no symptoms reported Musculoskeletal: reports: no symptoms reported <Bashir Mane - Last Filed: 10/11/17 22:59> Cardiology Progress Note - Objective Vital Signs Temp Pulse Resp BP BP Pulse Ox 10/11/17 20:42 94 145/94 H 10/11/17 16:00 99.3 F 94 16 141/103 H 96 10/11/17 12:00 98.0 F 92 17 159/101 H 98 Weight 223 lb 1.6 oz 10/10/17 10/11/17 10/12/17 06:59 06:59 06:59 Intake Total 1716 1640.4 1160 Output Total 2200 2300 1300 Balance -484 -659.6 -140 - Labs Result Diagrams: 10/10/17 05:45 10/10/17 09:49 Troponin/CKMB CK-MB (CK-2) 1.8 ng/mL (0-6.6) 10/07/17 14:00 Troponin I 0.156 ng/mL (< 0.028) H 10/07/17 20:21 - Assessment/Plan Pt. was seen and eval. by me. I agree with the A/P by the [employer]IC. We have discussed the pt. and the plan
[2017-10-11] MEDS: Carvedilol 25 MG TAB PO SCH (16:49)
--- NOTE | 2017-10-11 17:37 | EKG ---
Test Reason : Blood Pressure : / mmHG Vent. Rate : 141 BPM Atrial Rate : 416 BPM P-R Int : 000 ms QRS Dur : 082 ms QT Int : 326 ms P-R-T Axes : 000 075 -55 degrees QTc Int : 499 ms Atrial fibrillation with rapid ventricular response with premature ventricular or aberrantly conducte d complexes T wave abnormality, consider inferior ischemia or digitalis effect Abnormal ECG Confirmed by SHERLY BURCH ([id number]), editor index ROYD MEREDITH ([id number]) on 10/11/2017 5:37:19 PM Referred By: Confirmed By:SHERLY BURCH
[2017-10-12] MEDS: Amiodarone HCl 450 MG, Admixture Fee 1 EACH in Dextrose 5% in Water 250 ML IVPB SCH (06:57)
[2017-10-12 07:12] LABS: Hemoglobin 16.5 g/dL (14.0-18.0); Platelet Count 255 thou/uL (130-400)
[2017-10-12 08:40] VITALS: BP 152/94; TEMP 97.3
[2017-10-12] MEDS: Carvedilol 25 MG TAB PO SCH (08:41)
[2017-10-12] MEDS: Lisinopril 5 MG TAB PO SCH (08:41)
[2017-10-12] MEDS: Apixaban 5 MG TAB PO SCH (08:41)
[2017-10-12] MEDS: Furosemide 20 MG TAB PO SCH (08:42)
[2017-10-12] MEDS: Docusate 100 MG CAP PO SCH (08:42)
[2017-10-12] MEDS: Famotidine 20 MG TAB PO SCH (08:42)
[2017-10-12] MEDS: Digoxin 0.125 MG TAB PO SCH (08:42)
[2017-10-12] MEDS: Spironolactone 25 MG TAB PO SCH (08:42)
[2017-10-12] MEDS ORDERED: Amiodarone 200 MG TAB PO SCH ×2 (09:00)
--- NOTE | 2017-10-12 13:57 | DIS ---
DATE OF ADMISSION: 10/07/2017 DATE OF DISCHARGE: 10/12/2017 PRIMARY CARE PHYSICIAN: Listed as none. DISCHARGE DIAGNOSES: 1. New-onset atrial fibrillation with rapid ventricular response. 2. Cardiomyopathy, unspecified. 3. Demand ischemia. 4. Severe mitral regurgitation, unspecified. 5. Essential hypertension, chronic. CONSULTATION: Cardiology, Dr. Itz Hernandez. PROCEDURES: Echocardiogram on 10/09/2017 that showed an EF of 15-20%, severely depressed left ventricular function, severe MR and mild to moderate TR. HISTORY AND PHYSICAL: Mr. Soriano is a 62-year-old male with a history of hypertension and asthma who moved naturally here about a year ago. For about a week prior to admission, he started feeling like he was sluggish or "dragging" and felt short of breath. This progressed over the next several days with increased lethargy, so decided to come to the emergency department for evaluation. He initially went to [facility] and he was found to be in atrial fibrillation with RVR and was going to be transferred directly, but had to go home because some clothes. He actually came to our ER instead. He was seen and evaluated there. He was placed on Cardizem drip and we were called for admission. HOSPITAL COURSE: Patient was seen and examined by Dr. Coffey. He was placed on an inpatient with Cardizem drip. Cardiology was consulted. Cardiac biomarkers were obtained and echocardiogram was ordered. Overnight 10/07 to 10/08, patient remained fairly stable. He was seen by Dr. Itz Hernandez who recommended resuming his Coreg which he has stopped taking and continued on therapeutic Lovenox. He started him on Coumadin in addition to Lovenox until he was therapeutic and began to taper off over the Cardizem drip as metoprolol took effect. Overnight, 10/08/2017 to 10/09/2017, patient requests to be on Eliquis instead and was transitioned over. He was continued to be weaned off the Cardizem drip. Echocardiogram was done with the above findings. Patient was stable and had no further complaints. He was set up to have a ELENA and cardioversion done on Friday. Through the weekend, patient has been stable. Labs have been stable. This morning, his IV infiltrated. He refused to have another one started and then left against medical advice. PHYSICAL EXAMINATION: Patient was not able to be seen or examined. DISCHARGE MEDICATIONS: No prescriptions given. DISCHARGE CONDITION: Stable, but guarded now. DISCHARGE ACTIVITY: No restrictions were given. Patient did not wait for instructions. FOLLOWUP APPOINTMENTS: Unknown. RABIA
[2017-10-19] MEDS ORDERED: Amiodarone 200 MG TAB PO SCH (09:00)
== END 2017-10-12 09:30 | disposition left against medical advice (07) | DRG 308 ==
LOC: ERS 13:25 → 2NO 14:40
PROVIDERS: ADMIT Internal Medicine; ATTEND Internal Medicine
DX: I48.91 Unspecified atrial fibrillation (principal); I50.23 Acute on chronic systolic (congestive) heart failure; I24.8 Other forms of acute ischemic heart disease; I11.0 Hypertensive heart disease with heart failure; I42.9 Cardiomyopathy, unspecified; I34.0 Nonrheumatic mitral (valve) insufficiency; J45.909 Unspecified asthma, uncomplicated; F10.10 Alcohol abuse, uncomplicated; E66.9 Obesity, unspecified; Z68.30 Body mass index [BMI] 30.0-30.9, adult; Z91.14 Patient's other noncompliance with medication regimen; Z79.01 Long term (current) use of anticoagulants
CPT/HCPCS: 36415; 36416; 80048; 80061; 80076; 80306; 81001; 82553; 82565; 83735; 83880; 84132; 84439; 84443; 84484; 85014; 85018; 85025; 85049; 85610; 90471; 90732; 93005; 93306; 93798; 94640; 94760; 96365; 96366; A4216; G0009; J0282; J1160; J1650; J7050; J7070; J7614; Q0162

== ENCOUNTER 2022-06-18 05:47 | Day surgery (SDC) | payer OTHER ==
[2022-06-17 09:43] VITALS: BMI 26.1
[2022-06-18] MEDS ORDERED: PROPOFOL 20 ML ONE (07:26)
== END 2022-06-18 08:40 | disposition home or self-care (01) ==
LOC: SDC 05:47
PROVIDERS: ATTEND Internal Medicine Cardiovascular Disease
PROC: 5A2204Z Restoration of Cardiac Rhythm, Single (ICD-10-PCS; principal; 2022-06-18)
DX: I48.19 Other persistent atrial fibrillation (principal); I10 Essential (primary) hypertension; J45.909 Unspecified asthma, uncomplicated; I42.9 Cardiomyopathy, unspecified; Z86.73 Personal history of transient ischemic attack (TIA), and cerebral infarction without residual deficits; Z79.01 Long term (current) use of anticoagulants; Z79.899 Other long term (current) drug therapy; Z88.8 Allergy status to other drugs, medicaments and biological substances
CPT/HCPCS: 92960; 93005; 93010; J2704